=== PATIENT | female | born 1985 | race African-American/Black ===

== ENCOUNTER → 2018-05-29 | Outpatient (CLI) | payer BC ==
[2018-05-29 11:16] LABS: GLUCOSE,FASTING 84 mg/dL (<110)
== END ==
LOC: OD 10:09
PROVIDERS: ATTEND Surgery
DX: B99.9 Unspecified infectious disease (principal); Z83.3 Family history of diabetes mellitus
CPT/HCPCS: 36415; 82951; 83036

== ENCOUNTER 2018-07-09 05:41 | Day surgery (SDC) | payer BC ==
[2018-06-30 11:53] LABS: HEMATOCRIT 36.6 % (36.0-47.0); HEMOGLOBIN 12.1 g/dL (12.0-15.5); MEAN CORPUSCULAR HEMOGLOBIN 25.6 pg (27.0-33.4); MEAN CORPUSCULAR HGB CONC 33.1 g/dL (32.0-36.0); MEAN CORPUSCULAR VOLUME 77 fl (80-97); PLATELET COUNT 261 10^3/uL (150-450); RED BLOOD COUNT 4.73 10^6/uL (3.72-5.28); RED CELL DISTRIBUTION WIDTH 14.8 % (11.5-14.0); WHITE BLOOD COUNT 9.7 10^3/uL (4.0-10.5)
[~2018-07-09 05:41] MED LIST: LACTATED RINGERS 1000 ML IV PRN; LIDOCAINE 0.5% INJ-PF (5 MG/ML) 50 ML SDV SUBCUT PRN; METRONIDAZOLE 500 MG/NS RTU 500 MG/100 ML RTUPB IV PRN
[2018-07-09] MEDS ORDERED: METRONIDAZOLE 500 MG/NS RTU 500 MG/100 ML RTUPB IV ONE (05:42)
[2018-07-09] MEDS ORDERED: MIDAZOLAM 2 MG/2 ML INJ ONE (06:59)
[2018-07-09] MEDS ORDERED: LIDOCAINE 2% INJ-PF (100 MG/5 ML) SYRINGE ONE (06:59)
[2018-07-09] MEDS ORDERED: FENTANYL CITRATE INJ/PF 100 MCG/2 ML AMPUL ONE (06:59)
[2018-07-09] MEDS ORDERED: HYDROMORPHONE HCL INJ/PF 2 MG/ML AMPULE ONE (07:00)
[2018-07-09] MEDS ORDERED: PROPOFOL INJ 200 MG/20 ML VIAL IV ONE (07:00)
[2018-07-09] MEDS ORDERED: ACETAMINOPHEN 1,000 MG/100 ML RTUPB IV ONE (07:00)
[2018-07-09] MEDS ORDERED: ONDANSETRON HCL INJ/PF 4 MG/2 ML SDV ONE ×2 (07:00→10:54)
[2018-07-09] MEDS: BUPIVACAINE HCL 0.5 % INJ/PF 30 ML SDV ONE ×2 (07:27→08:05)
[2018-07-09] MEDS: LIDOCAINE 1%/EPINEPHRINE INJ 20 ML VIAL ONE ×2 (07:28→08:05)
[2018-07-09] MEDS ORDERED: FENTANYL CITRATE INJ/PF 100 MCG/2 ML AMPUL IV PRN ×3 (08:05)
[2018-07-09] MEDS ORDERED: MORPHINE SULFATE 10 MG/ML INJ IV PRN (08:05)
[2018-07-09] MEDS ORDERED: PROMETHAZINE HCL INJ 25 MG/1 ML VIAL IV PRN ×2 (08:05)
[2018-07-09] MEDS ORDERED: DIPHENHYDRAMINE HCL 50 MG/ML VIAL IV PRN (08:05)
[2018-07-09] MEDS ORDERED: MEPERIDINE HCL/PF INJ 25 MG/1 ML DISP.SYRIN IV PRN (08:05)
--- NOTE | 2018-07-09 09:28 | Operative Report ---
Operative Report DATE OF SURGERY: 07/09/18 PREOPERATIVE DIAGNOSIS: Hydradenitis Suppurativa right axilla, acute and chronic infection POSTOPERATIVE DIAGNOSIS: same OPERATION: Wide excision right axillary hidradenitis suppurativa( 10 x 12 x 14 cm triangle), and closure of wound over drain SURGEON: BENJA BENSON LOW PRESSURE FIRER: BRYAN HAMILTON ANESTHESIA: GA TISSUE REMOVED OR ALTERED: Wide excision soft tissue right axilla hidradenitis COMPLICATIONS: None ESTIMATED BLOOD LOSS: Scant INTRAOPERATIVE FINDINGS: See below PROCEDURE: Patient was seen in the preop holding area where the right axilla was marked. She was then taken to the main operating room where general anesthesia was induced. Right arm was abducted, hair clipped from the right axilla, right axilla prepped and draped sterile fashion Surgical plan and surgical timeout were conducted. The pathologic findings were significant for extensive acute and chronic duodenitis suppurativa with multiple bronchioles extending out on the inner aspect of the arm, as well as along the low axilla against the chest wall heading towards the tail of [facility]. We marked on the skin a large inverted triangle of tissue to include all hair bearing skin and active disease. The skin was anesthetized with a combination of plain 1% lidocaine, quarter percent Marcaine. #10 blade was used to excise this large swath of skin which was approximately 10 x 12 x 15 cm in length. The level of dissection was taken down to the deep subcutaneous tissue. A few lymph nodes were enlarged consistent with reactive lymph nodes and these were taken in the specimen. A branch of the cutaneous nerve of the axilla was taken with the specimen as well. The specimen was sent for permanent analysis to pathology. A large Sabino drain was placed in the inferior aspect of the low axilla, secured to the skin with a 2-0 Prolene suture. We mobilized all of the skin flaps, then brought the tissue together in a T- like fashion with the horizontal component comprising the inner aspect of the upper arm, and the vertical component extending down through the midsection of the axilla to the right chest wall. There was a mild to moderate amount of tension where the 3 skin edges approximated in the center. Wound was closed in layers with 2-0 Vicryl, 3-0 Vicryl, then Dermabond glue. Sponge and counts are correct at the conclusion of the operation. Drain hooked to bulb suction. Patient tolerated procedure well, extubated, and taken to the recovery room in stable condition.
--- NOTE | 2018-07-09 09:47 | Discharge Summary ---
Discharge Summary (SDC) - Discharge Final Diagnosis: Hidradenitis Date of Surgery: 07/09/18 Discharge Date: 07/09/18 Condition: Stable Treatment or Instructions: WOUND CARE: - DO NOT MOVE RIGHT ARM AWAY FROM BODY UNTIL YOUR FOLLOW UP APPOINTMENT. LEAVE ARM BY SIDE. May bend elbow. - Leave tape and gauze in place for 48 hours. You may remove tape and gauze after 48 hours but leave skin glue intact. - You may shower in 48 hours. Do not scrub area. Warm water and soap may wash over area, pat dry and dress with gauze and tape. PAIN MANAGEMENT: - You may take [place], one pill by mouth every six hours as needed for pain. FOLLOW UP: - You may follow up at [facility] in 10-14 days. Call sooner with any questions/concerns. Prescriptions: Hydrocodone/Acetaminophen [[place] 5-325 mg Tablet] 1 tab PO Q6 #20 tablet Referrals: KRYSTAL VICENTE PA-C [Primary Care Provider] - Discharge Diet: As Tolerated Discharge Activity: No Lifting Over 10 Pounds, No Lifting/Push/Pulling, Other - do not move arm away from body until follow up. May use elbow. Report the Following to Your Physician Immediately: Fever over 101 Degrees, Unusual Bleeding, Swelling, Warmth, Drainage-Foul Smelling
[2018-07-09] MEDS ORDERED: HYDROCODONE/ACETAMINOPHEN 5-325 MG TABLET ONE (10:27)
[2018-07-09] MEDS ORDERED: DEXAMETHASONE SOD PHOSPHATE INJ 4 MG/1 ML VIAL ONE (10:54)
[2018-07-09] MEDS ORDERED: SUCCINYLCHOLINE CHLORIDE INJ 200 MG/10 ML VIAL ONE (10:54)
[2018-07-09] MEDS ORDERED: KETOROLAC TROMETHAMINE 60 MG/2 ML SDV ONE (10:54)
[2018-07-09 13:57] VITALS: BP 116/79
== END 2018-07-09 12:20 | disposition home or self-care (01) ==
LOC: OROUT 05:41
PROVIDERS: ATTEND Surgery
DX: L73.2 Hidradenitis suppurativa (principal); G43.909 Migraine, unspecified, not intractable, without status migrainosus; Z88.1 Allergy status to other antibiotic agents; Z88.5 Allergy status to narcotic agent; Z88.8 Allergy status to other drugs, medicaments and biological substances; Z79.899 Other long term (current) drug therapy
CPT/HCPCS: 36415; 85027; 81025; 88305 ×2; 11451; 14040; J2250; J3490 ×2; J1100; J1885; J2001; J1170; J0330; J2405; J2704; J0131; 400; J3010